=== PATIENT | male | born 1955 | race Caucasian/White ===

== ENCOUNTER 2017-04-13 06:41 | Inpatient (IN) | payer OTHER ==
[2017-03-17 11:10] VITALS: BMI 25.0
--- NOTE | 2017-03-17 11:44 | PAT Medication Instructions ---
Service Date Mar 17, 2017. Current Home Medication List Acetaminophen (Tylenol), 1,000 MG PO Q4H PRN for Pain or Fever Atorvastatin (Lipitor), 20 MG PO HS Celecoxib (CeleBREX), 200 MG PO QPM Clonazepam (Klonopin), 0.5 MG PO BID PRN for ANX/INSOM. Fish Oil (Parma-3), 1 CAP PO QAM Losartan Potassium (Cozaar), 50 MG PO QAM Trazodone Hcl (Trazodone), 25 MG PO HS Medication Instructions For Your Scheduled Surgery -Follow your surgeon's instructions for: Celecoxib (CeleBREX), 200 MG PO QPM - Hold the following medications 2 weeks prior to surgery: Fish Oil (Parma-3), 1 CAP PO QAM - Hold the following medications the morning of surgery: Losartan Potassium (Cozaar), 50 MG PO QAM - Take the following medications the morning of surgery with a sip of water: Clonazepam (Klonopin), 0.5 MG PO BID PRN for ANX/INSOM. (if needed) Acetaminophen (Tylenol), 1,000 MG PO Q4H PRN for Pain or Fever (if needed, up to four hours before surgery) - Take the following medications as scheduled the night before surgery: Trazodone Hcl (Trazodone), 25 MG PO HS Clonazepam (Klonopin), 0.5 MG PO BID PRN for ANX/INSOM. (if needed) Atorvastatin (Lipitor), 20 MG PO HS Acetaminophen (Tylenol), 1,000 MG PO Q4H PRN for Pain or Fever (if needed) If you have any questions please call us at [phone] or [phone] or [phone]
[2017-03-17 12:18] LABS: BASO % 0.5 %; BASO ABS # 0.03 K/uL (0-0.2); EOS % 2.8 %; EOS ABS # 0.18 K/uL (0-0.5); HEMATOCRIT 40.2 % (42-52); HEMOGLOBIN 14.3 g/dL (14.0-18.0); IG# 0.01 K/uL (0.00-0.02); LYMPH % 35.3 %; LYMPH ABS # 2.26 K/uL (1.2-3.4); MEAN CELL VOLUME 88.7 fL (80-100); MEAN CORPUSCULAR HEMOGLOBIN 31.6 pg (25-34); MEAN CORPUSCULAR HGB CONC 35.6 g/dl (32-36); MEAN PLATELET VOLUME 9.1 fL (7.4-10.4); MONO % 9.5 %; MONO ABS # 0.61 K/uL (0.11-0.59); NEUT % 51.7 %; NEUT ABS # 3.32 K/uL (1.4-6.5); PLATELET COUNT 198 K/uL (130-400); RED CELL DISTRIBUTION WIDTH CV 13.2 % (11.5-14.5); RED CELL DISTRIBUTION WIDTH SD 42.7 fL (36.4-46.3); WHITE BLOOD COUNT 6.41 K/uL (4.8-10.8)
[2017-03-17 12:29] LABS: HEMOGLOBIN A1C 5.3 % (4.5-5.6)
[2017-03-17 12:30] LABS: PTT PATIENT 28.8 SECONDS (21.0-31.0)
--- NOTE | 2017-03-17 12:55 | DIAGNOSTIC IMAGING REPORT ---
CHEST 2 VIEWS ROUTINE HISTORY: Preop. COMPARISON: None. FINDINGS: The lungs are clear. The heart is normal in size. No pleural effusions. No pneumothorax. Postoperative changes seen within the left shoulder. IMPRESSION: No acute process. Electronically signed by: Stefan Elkins M.D. 03/17/2017 12:53 PM Dictated Date/Time: 03/17/2017 12:50 PM
[2017-03-17 14:01] LABS: ALBUMIN 3.7 gm/dl (3.4-5.0); CREATININE 0.88 mg/dl (0.60-1.40)
--- NOTE | 2017-04-12 19:05 | HISTORY & PHYSICAL EXAMINATION ---
DATE OF ADMISSION: 04/13/2017 CHIEF COMPLAINT: Chronic right hip pain. HISTORY OF PRESENT ILLNESS: This is a 61-year-old male patient of Dr. Cid'yue complaining of chronic right hip pain, longstanding, now progressively getting worse. The patient has been diagnosed with end-stage osteoarthritis per clinical and radiographic exams. He has failed conservative treatment including intraarticular injections, the use of anti-inflammatories. The patient has increased pain with weightbearing activities and his pain does interfere with his activities of daily living. PAST MEDICAL HISTORY: Hypertension, anxiety, osteoarthritis. SOCIAL HISTORY: Nonsmoker, nondrinker. FAMILY HISTORY: Noncontributory. PAST SURGICAL HISTORY: ACL surgery and shoulder surgery in the past. REVIEW OF SYSTEMS: The patient complains of chronic right hip pain. Otherwise, denies any shortness of breath, chest pain, nausea, vomiting or any other joint complaints. PHYSICAL EXAMINATION: GENERAL: Well-developed, well-nourished 61-year-old male in no acute distress. He is alert and oriented x3 and pleasant. HEENT: Normocephalic, atraumatic. Extraocular motions are intact. Pupils are equal and reactive to light. HEART: Regular rate and rhythm, no murmurs are appreciated. LUNGS: Clear. ABDOMEN: Soft and nontender, bowel sounds are present. EXTREMITIES: Right hip reveals painful range of motion with internal and external rotation passively. He has 5/5 strength in his lower extremity with pain. NEUROLOGIC: Neurovascularly he is intact in his right lower extremity. DIAGNOSES: Right hip end-stage osteoarthritis, hypertension, anxiety, osteoarthritis. PLAN: The patient was advised of his diagnosis. Indications, risks, benefits, and postop course have all been reviewed. The patient wishes to proceed with a right total hip arthroplasty. Necessary consent form, preoperative testing and clearances will be obtained.
[2017-04-13] VITALS (8 sets, daily range): BP systolic 109–155; BP diastolic 67–99; PULSE 64–100; TEMP 36.4–36.5; O2SAT 94–100; Ht 167.6 cm; Wt 71.2 kg
[~2017-04-13] VITALS: Ht 167.6 cm; Wt 71.2 kg
[2017-04-13] MEDS: ROPIVACAINE 5MG/ML 30 ML 150 MG, BUPIVACAINE 0.5% MPF INJ 30 ML, EpINEphrine HCL INJ 0.... INFIL SCH ×7 (06:00)
[2017-04-13] MEDS: TRANEXAMIC ACID INJ 1,000 MG x 2 Bags IV SCH ×4 (06:00→06:30)
[~2017-04-13 06:41] MED LIST: ACET-1256 PO; ACETAMINOPHEN 500 MG TAB PO SCH; ATOR-22 PO; BUPIVACAINE 0.5 % 5 MG/1 ML PF 10ML VIAL ONE; CLB/200 PO; CLON0.5T3 PO; CeleBREX 200 MG CAP PO SCH; DEXAMETHASONE 4 MG TAB PO SCH; FAMOTIDINE 20 MG TAB PO SCH; GABAPENTIN 600 MG PO SCH; LACTATED RINGER'S 1000ML 1,000 ML IV SCH; LACTATED RINGER'S 1000ML 500 ML IV SCH; LOSA50TA6 PO; METOCLOPRAMIDE HCL 10 MG TAB PO SCH; OMEG10007 PO; TRAZ50TA35 PO; VANCOMYCIN 1GM/270ML NSS 270 ML IV SCH
--- NOTE | 2017-04-13 07:10 | History & Physical Bridge Note ---
H&P Re-Evaluation Bridge Note: I have examined the patient, reviewed the History & Physical and in the interval since the performance of the History & Physical I have noted the following changes of clinical significance: No changes noted
[2017-04-13] MEDS ORDERED: FENTANYL CITRATE INJ 50 MCG/1 ML 2 ML VIAL ONE ×3 (07:23→10:55)
[2017-04-13] MEDS ORDERED: MIDAZOLAM HCL 1 MG/ML 2ML VIAL ONE (07:24)
[2017-04-13] MEDS ORDERED: FENTANYL CITRATE INJ 50 MCG/1 ML 2 ML VIAL IV PRN (07:45)
[2017-04-13] MEDS ORDERED: ONDANSETRON INJ 2 MG/ML 2 ML VIAL IV PRN ×2 (07:45→12:15)
[2017-04-13] MEDS ORDERED: EpHEDrine SULFATE INJ 50 MG/ML AMP IV PRN (07:45)
[2017-04-13] MEDS ORDERED: ATROPINE SULFATE 0.1 MG/ML 5ML SYR IV PRN (07:45)
[2017-04-13] MEDS ORDERED: ORTHO JOINT ANESTHETIC ONE (07:48)
[2017-04-13] MEDS ORDERED: POVIDONE-IODINE OP SOLN 30 ML BTL ONE (07:48)
[2017-04-13] MEDS ORDERED: BACITRACIN 50000 UNIT VIAL ONE (07:48)
[2017-04-13] MEDS ORDERED: DEXAMETHASONE SOD INJ 4 MG/ML VIAL ONE (09:51)
[2017-04-13] MEDS ORDERED: ONDANSETRON INJ 2 MG/ML 2 ML VIAL ONE (10:52)
[2017-04-13] MEDS ORDERED: PROPOFOL IV EMULSION 10 MG/ML 20 ML VIAL IV ONE (10:52)
[2017-04-13] MEDS ORDERED: EpHEDrine SULFATE 50MG/5ML SYR ONE (11:15)
[2017-04-13] MEDS ORDERED: NEOSTIGMINE METHYLSULFATE 5 MG/5 ML SYR ONE (11:15)
[2017-04-13] MEDS ORDERED: PHENYLEPHRINE 100MCG/ML 5ML SYR ONE (11:26)
--- NOTE | 2017-04-13 11:38 | [facility] Post Operative Brief Note ---
Immediate Operative Summary Operative Date Apr 13, 2017. Pre-Operative Diagnosis Right Hip, End-Stage Osteoarthritis Post-Operative Diagnosis Same as preoperative Procedure(s) Performed Right Total Hip Arthroplasty, Uncemented Surgeon Dr. Jay Cid Machinery Dismantler Surgeon(s) Dre Nelson PA-C Estimated Blood Loss 75 cc Findings Consistent with Post-Op Diagnosis Specimens Right Femoral Head Drains 2 hemovadc Anesthesia Type General Regional Complication(s) none Disposition Disposition: Recovery Room / PACU
[2017-04-13] MEDS ORDERED: CLONAZEPAM 0.5 MG TAB PO PRN (12:15)
[2017-04-13] MEDS ORDERED: MoRPHine SULFATE 2 MG/ML CARP IV PRN (12:15)
[2017-04-13] MEDS ORDERED: TAMSULOSIN HCL 0.4 MG CAP PO PRN (12:15)
[2017-04-13] MEDS ORDERED: OXYCODONE HCL IR 5 MG TAB (IMMEDIATE RELEASE) PO PRN (12:15)
[2017-04-13] MEDS ORDERED: ALUMINUM/MAGNESIUM/SIMETH (MAALOX MAX) 30 ML UDC PO PRN (12:15)
[2017-04-13] MEDS ORDERED: VANCOMYCIN CONSULT ACTIVE PRN (12:15)
[2017-04-13] MEDS ORDERED: MAGNESIUM HYDROXIDE SUSP 30 ML UDC PO PRN (12:15)
[2017-04-13] MEDS ORDERED: MoRPHine SULFATE 10 MG/ML CARP/VIAL IV PRN (12:45)
[2017-04-13] MEDS ORDERED: MoRPHine SULFATE 4 MG/ML 1 ML CARP\\VIAL IV PRN (12:45)
--- NOTE | 2017-04-13 13:19 | Anesthesiology Progress Note ---
Anesthesia Post Op Note Date & Time Apr 13, 2017 at 13:19 Vital Signs Pain Intensity: 0 Vital Signs Past 12 Hours Date Time Temp Pulse Resp B/P (MAP) Pulse Ox O2 Delivery O2 Flow Rate FiO2 04/13/17 13:13 100 13 18 13:13 102 13 98 18 13:11 140/97 18 13:08 90 12 99 18 13:08 90 12 04/13/17 13:06 139/92 04/13/17 13:03 93 12 98 18 13:03 93 12 04/13/17 13:01 146/93 18 12:58 97 18 98 04/13/17 12:58 99 18 04/13/17 12:56 149/94 04/13/17 12:53 96 19 98 18 12:53 96 19 04/13/17 12:51 147/88 04/13/17 12:48 92 13 99 04/13/17 12:48 92 13 04/13/17 12:46 152/94 18 12:43 96 14 18 12:43 96 14 98 18 12:42 96 16 99 18 12:42 95 16 18 12:41 156/98 18 12:37 90 15 145/93 97 18 12:37 90 15 18 12:36 149/93 18 12:32 95 13 18 12:32 95 13 99 18 12:32 36.6 92 16 145/93 (108) 98 Nasal Cannula 2 04/13/17 12:31 147/89 18 12:27 88 12 100 18 12:27 88 12 18 12:26 131/82 18 12:22 87 14 100 18 12:22 87 14 18 12:21 84 11 18 12:21 83 11 99 18 12:20 120/70 04/13/18 12:10 79 15 108/71 (82) 99 Oxymask 10 04/13/17 12:01 36.5 79 16 106/63 (76) 99 Oxymask 10 04/13/17 06:54 36.5 76 16 155/99 Room Air Notes Mental Status: alert / awake / arousable, participated in evaluation Pt Amnestic to Procedure: Yes Nausea / Vomiting: adequately controlled Pain: adequately controlled Airway Patency, RR, SpO2: stable & adequate BP & HR: stable & adequate Hydration State: stable & adequate Neuraxial Anesthesia: was administered, sensory block is resolving Anesthetic Complications: no major complications apparent
--- NOTE | 2017-04-13 13:27 | DIAGNOSTIC IMAGING REPORT ---
AP PELVIS, CROSSTABLE LATERAL RIGHT HIP History: Right total hip arthroplasty. Degenerative arthritis. Postop. FINDINGS: The patient is status post a right total hip arthroplasty. The hardware is intact. No fracture or dislocation. Skin jimmy and surgical drains are in place. IMPRESSION: Right total hip arthroplasty. No evidence for hardware complication Electronically signed by: Stefan Elkins M.D. 04/13/2017 1:26 PM Dictated Date/Time: 04/13/2017 1:25 PM
[2017-04-13] MEDS: D5W AND 1/2NSS + 20MEQ KCL 1,000 ML IV SCH (14:23)
[2017-04-13] MEDS: ACETAMINOPHEN 500 MG TAB PO SCH ×2 (14:23→21:22)
[2017-04-13] MEDS: FERROUS GLUCONATE 324 MG TAB PO SCH (17:48)
--- NOTE | 2017-04-13 19:06 | CONSULTATION REPORT ---
DATE OF CONSULTATION: 04/13/2017 CHIEF COMPLAINT: Status post right hip surgery. HISTORY OF PRESENT ILLNESS: This 61-year-old male with past medical history significant for hypertension, anxiety, insomnia, hyperlipidemia, BPH and diastolic CHF, is status post left hip surgery, tolerated the procedure okay. Pain is under control. Denies any chest pain, no shortness of breath, no headaches, no blurred vision, no nausea, no vomiting, no abdominal pain, resting comfortably and hemodynamically stable. ALLERGIES: BEE STINGS. PAST MEDICAL HISTORY: As mentioned above. PAST SURGICAL HISTORY: knee repair, shoulder surgery, vasectomy. MEDICATIONS: The patient is on Tylenol 650 mg p.o. q. 8 hours p.r.n., amoxicillin 2000 mg once as needed, Klonopin 0.5 mg p.o. b.i.d. p.r.n., glucosamine chondroitin 1 capsule p.o. daily, losartan 500 mg p.o. daily, multivitamins with minerals 1 tablet p.o. daily, trazodone 50 mg p.o. at bedtime p.r.n., atorvastatin 20 mg p.o. daily and vitamin C 500 mg p.o. daily. FAMILY HISTORY: Father has hypertension. Mother has emphysema and CVA. Daughter has asthma. Brother has diabetes. SOCIAL HISTORY: . No tobacco use. Alcohol occasional. No drug use. REVIEW OF SYMPTOMS: As per HPI. Rest of review of systems negative. PHYSICAL EXAMINATION: GENERAL: The patient is of moderate build, not in distress. VITAL SIGNS: Temperature 36.5, pulse 94, respiratory rate 18, blood pressure 124/76, oxygen 98% on room air. HEENT: No pallor, no icterus. NECK: No JVD, no neck masses. CARDIOVASCULAR: S1, S2 heard, regular rate and rhythm, no murmur, no gallop. RESPIRATORY SYSTEM: Clear to auscultation bilaterally. No wheezing, no crackles. ABDOMEN: Soft, bowel sounds present. Nontender. No distention. CENTRAL NERVOUS SYSTEM: Nonfocal. EXTREMITIES: Status post right hip surgery. Dressing and drain intact. Moves extremities, no edema. LABORATORY DATA: Unavailable. ASSESSMENT AND PLAN: This is a 61-year-old male status post right hip arthroplasty. 1. Right hip arthroplasty, management as per Orthopedics. 2. Hypertension. Continue his home medications of losartan. Monitor his blood pressure. 3. History of hyperlipidemia. Continue statin. 4. History of anxiety and insomnia . On Klonopin prn and trazodone. 5. Deep venous thrombosis prophylaxis and disposition as per Orthopedics. MTDD
[2017-04-13] MEDS ORDERED: VANCOMYCIN INJ 1,000 MG in SODIUM CHLORIDE 0.9% 250ML 250 ML IV SCH (19:30)
[2017-04-13] MEDS: SENNA 8.6 MG TAB PO SCH (19:44)
[2017-04-13] MEDS: DOCUSATE SODIUM 100 MG CAP PO SCH (19:44)
[2017-04-13] MEDS: ASPIRIN 81 MG ECTAB PO SCH (21:20)
[2017-04-13] MEDS: TRAZODONE HCL 50 MG TAB PO SCH (21:20)
[2017-04-13] MEDS: CeleBREX 200 MG CAP PO SCH (21:21)
[2017-04-13] MEDS: ATORVASTATIN 20 MG TAB PO SCH (21:22)
--- NOTE | 2017-04-13 21:45 | OPERATIVE REPORT ---
DATE OF OPERATION: 04/13/2017 INDICATION FOR PROCEDURE: The patient is a 61-year-old male with bilateral hip osteoarthritis, right greater than left. He has [id number] end-stage osteoarthritis, right hip. He has failed all conservative management. Now presents for right hip replacement. PREOPERATIVE DIAGNOSIS: End-stage osteoarthritis, right hip. POSTOPERATIVE DIAGNOSIS: Same. PROCEDURE: Right total hip arthroplasty. SURGEON: Jay Cid MD. SENIOR SYSTEMS ADMINISTRATOR: DIEGO Burks. ANESTHESIA: Spinal, sedation and Orthomix. OPERATIVE PROCEDURE: The patient was placed under sedation, had spinal anesthetic, transferred to the operating room and placed in the supine position on a sacral pad with a foot roll under his foot to flex his knee 90 degrees and hip 60 degrees during the procedure as needed. The bed was placed in some Trendelenburg to drain the pelvic veins, tilted to the left to help expose right hip. Right hip exam demonstrated 90 degrees of flexion, limited internal rotation. His leg length was just a few millimeters short compared to his opposite hip. His right lower extremity hip area was prepped and draped with ChloraPrep in usual sterile fashion. A lateral incision was made across the right hip. A Hardinge approach was performed to the right hip. Skin was incised sharply. Subcutaneous flaps were elevated. The fascia alley was divided longitudinally and the gluteus quan fascia was split proximally. The patient had fairly thickened trochanteric bursa, which was resected. The gluteus medius was intact. Gluteus medius was split between its anterior 40% and posterior 60%. This was reflected off the minimus, was divided and reflected off the capsule and the capsule was divided down to the hip joint which demonstrated a joint effusion and synovitis. He had a large superior posterior labral tear. A curvilinear incision was made through the gluteus medius tendon leaving a cuff of tissue for repair on the trochanter. The vastus lateralis was split 3.5 cm and a muscular capsular flap was elevated off the anterior hip joint. Hip joint was dislocated with flexion and external rotation. Femoral head was noted to be completely eburnated bone with some moderate rimming osteophytes. The femoral neck cut was then made 15 mm proximal to the lesser trochanter in neutral anteversion. Femoral head was removed, measured about 49 mm in diameter. The acetabulum was then exposed. We used a self-retaining superior acetabular retractor impacted into the ileum. A blunt Hohmann retractor anteriorly and double angled inferior ischial retractor. Acetabulum was down to bone so had some articular cartilage in certain areas and had a labral tear that was identified. There was also synovitis in the joint. The acetabular labrum was excised and soft tissue in the acetabular fossa was excised. The transverse acetabular ligament was resected with an anterior capsular release and a partial capsulectomy. The first reamer used was the [employer] Trident acetabular shell, was a 44 mm reamer which we reamed to the inner table and then sequential reamers up to a size 52, which had appropriate fit and fill. The trial reduction was performed which had a stable fit and then we went ahead after irrigation with antibiotic solution with bacitracin, implanting the52 mm E Trident PSL hydroxyapatite coated shell. This was placed in 45 degrees of abduction and about 15 degrees of anteversion. We had good fixation with tight pressfit. Two additional screws, both 20 mm x 6.5 mm diameter screws in the posterior superior quadrant were placed. Then after irrigation, the 36 mm E 10 degree polyethylene X3 poly inserted into place with the high wall posterior. Then attention was taken to the femoral preparation. The femur was exposed by flexing and externally rotating the hip. We used a box osteotome followed by a starter awl followed by sequential broaches up to a size 5 stem. We used a 127 degree neck angle based on preoperative templating. A trial reduction with a +0 neck length gave stability through full range of motion and satisfactory soft tissue tension. The trial was removed. After irrigation with antibiotic solution and bacitracin, the final implant which was the Accolade II tapered stem size 5 with a 127 degree neck angle was impacted into position. Then we went ahead with the Biolox delta 36 mm +0 neck length femoral head, impacted onto the Albarran taper of the stem and this was reduced to the acetabulum. We checked the leg lengths, which this leg was about 3-4 mm longer than the opposite leg but length was required for stability. The wound was copiously irrigated with antibiotic solution and bacitracin. Then, we used a Betadine soak while we prepared the greater trochanter for repair with transosseous sutures placed and the #5 FiberWire sutures passed. After further irrigation, 2 drains were brought out laterally and placed into the hip joint. Then the gluteus minimus was repaired and the capsule repaired with [id number] #1 Vicryl sutures. The medius was repaired with the #5 FiberWire sutures using Aston-Valeriy suture technique and lateral row soft tissue fixation was performed with [id number] #2 Fiberwire sutures and the split in the vastus lateralis was closed with yrgzil-[id number] #1 Vicryl sutures. Split in the gluteus medius was repaired with [id number]-lg-dixhe #1 Vicryl sutures. Hip was taken through full range of motion and repair was secure. The fascia alley and the gluteus quan fascia were repaired with annuvn-[id number] #1 Vicryl sutures. Subcutaneous tissue was closed with interrupted 2-0 Vicryl sutures, skin closed with jimmy and sterile dressings were applied and the patient tolerated the procedure well. DIEGO Burks was my first sampler, he functioned as first sampler throughout the entire procedure. He assisted in prepping, draping, leg positioning, soft tissue retraction, instrument management during the procedure and performed the outer fascial, subcutaneous and skin closure and will participate in postoperative care of the patient. I attest to the content of the Intraoperative Record and any orders documented therein. Any exception s are noted below.
[2017-04-14] MEDS: D5W AND 1/2NSS + 20MEQ KCL 1,000 ML IV SCH ×2 (00:10→09:51)
[2017-04-14 03:00] VITALS: BP 132/71; PULSE 83; TEMP 36.6; O2SAT 98
[2017-04-14] MEDS: ACETAMINOPHEN 500 MG TAB PO SCH ×3 (05:40→22:00)
[2017-04-14 07:10] VITALS: BP 133/76; PULSE 56; TEMP 36.8; O2SAT 100
--- NOTE | 2017-04-14 07:39 | Orthopedic Progress Note ---
Orthopedic Progress Note Date of Service Apr 14, 2017. Subjective Post OP Day: 1 Reports: feeling well, pain controlled w PO medications, Denies: complaints, chest pain, SOB, nausea / vomiting, light headedness, calf pain Objective calves soft nontender, N/V intact, hip located, capillary refill less than 2 sec., dressing C/D/I, A&O x3, toes mobile Date Time Temp Pulse Resp B/P (MAP) Pulse Ox O2 Delivery O2 Flow Rate FiO2 04/14/17 03:00 36.6 83 16 132/71 (91) 98 Room Air 04/13/17 23:30 Room Air 04/13/17 22:53 36.5 64 16 109/67 (81) 96 Room Air 04/13/17 19:49 36.5 73 18 125/76 (92) 99 Room Air 04/13/17 17:00 36.4 90 18 130/78 (95) 94 Room Air 04/13/17 16:25 Room Air 04/13/17 15:57 36.5 94 18 124/76 (92) 98 Room Air 04/13/17 14:56 95 16 138/86 (103) 98 Room Air 04/13/17 14:02 36.4 100 19 135/87 (103) 100 Nasal Cannula 2.0 04/13/17 13:30 36.4 99 16 146/88 (107) 100 Nasal Cannula 2.0 04/13/17 13:30 Room Air 04/13/17 13:30 100 Nasal Cannula 2.0 04/13/17 13:13 100 13 04/13/17 13:13 102 13 98 04/13/17 13:11 140/97 04/13/17 13:08 90 12 99 04/13/17 13:08 90 12 04/13/17 13:06 139/92 04/13/17 13:03 93 12 98 04/13/17 13:03 93 12 04/13/17 13:01 146/93 04/13/17 12:58 97 18 98 04/13/17 12:58 99 18 04/13/17 12:56 149/94 04/13/17 12:53 96 19 98 04/13/17 12:53 96 19 04/13/17 12:51 147/88 04/13/17 12:48 92 13 99 04/13/17 12:48 92 13 04/13/17 12:46 152/94 04/13/17 12:43 96 14 04/13/17 12:43 96 14 98 04/13/17 12:42 96 16 99 04/13/17 12:42 95 16 04/13/17 12:41 156/98 04/13/17 12:37 90 15 145/93 97 04/13/17 12:37 90 15 04/13/17 12:36 149/93 04/13/17 12:32 95 13 04/13/17 12:32 95 13 99 04/13/17 12:32 36.6 92 16 145/93 (108) 98 Nasal Cannula 2 04/13/17 12:31 147/89 04/13/17 12:27 88 12 100 04/13/17 12:27 88 12 04/13/17 12:26 131/82 04/13/17 12:22 87 14 100 04/13/17 12:22 87 14 04/13/17 12:21 84 11 04/13/17 12:21 83 11 99 04/13/17 12:20 120/70 04/13/17 12:10 79 15 108/71 (82) 99 Oxymask 10 04/13/17 12:01 36.5 79 16 106/63 (76) 99 Oxymask 10 Laboratory Results 24 Hours: Test 04/14/17 07:33 Assessment & Plan Assessment: POD #1, Right ANDIE Plan: PT/ OT DVT proph- ASA D/C planning- Home As per medicine Inhouse Planning Pain Management: Celebrex, Ultram, Morphine, PO Tylenol, Oxy IR DVT Prophylaxis: TEDs, SCDs, ASA Discharge Planning Discharge Planning: home Pain Management: Celebrex, PO Tylenol, Oxy IR DVT Prophylaxis: TEDs, ASA Therapy: Physical Therapy, Occupational Therapy
[2017-04-14 07:57] LABS: BASO % 0.1 %; BASO ABS # 0.01 K/uL (0-0.2); EOS % 0.1 %; EOS ABS # 0.02 K/uL (0-0.5); HEMATOCRIT 35.2 % (42-52); HEMOGLOBIN 12.3 g/dL (14.0-18.0); IG# 0.07 K/uL (0.00-0.02); LYMPH % 14.7 %; LYMPH ABS # 2.28 K/uL (1.2-3.4); MEAN CELL VOLUME 88.4 fL (80-100); MEAN CORPUSCULAR HEMOGLOBIN 30.9 pg (25-34); MEAN CORPUSCULAR HGB CONC 34.9 g/dl (32-36); MONO % 9.9 %; MONO ABS # 1.53 K/uL (0.11-0.59); NEUT % 74.7 %; NEUT ABS # 11.57 K/uL (1.4-6.5); PLATELET COUNT 174 K/uL (130-400); RED CELL DISTRIBUTION WIDTH SD 42.2 fL (36.4-46.3); WHITE BLOOD COUNT 15.48 K/uL (4.8-10.8)
[2017-04-14 08:22] LABS: CALCIUM 8.5 mg/dl (8.5-10.1); CREATININE 0.87 mg/dl (0.60-1.40); POTASSIUM 3.8 mmol/L (3.5-5.1)
[2017-04-14] MEDS: FERROUS GLUCONATE 324 MG TAB PO SCH ×3 (08:45→17:30)
[2017-04-14] MEDS: CeleBREX 200 MG CAP PO SCH ×2 (08:46→20:35)
[2017-04-14] MEDS: DOCUSATE SODIUM 100 MG CAP PO SCH ×2 (08:46→20:34)
[2017-04-14] MEDS: LOSARTAN POTASSIUM 50 MG TAB PO SCH (08:46)
[2017-04-14] MEDS: MULTIVITAMIN TAB PO SCH (08:47)
[2017-04-14] MEDS: ASPIRIN 81 MG ECTAB PO SCH ×2 (08:47→20:35)
[2017-04-14] MEDS: TRAMADOL HCL 50 MG TAB PO PRN ×4 (10:29→22:00)
[2017-04-14 11:40] VITALS: BP 138/81; PULSE 65; TEMP 36.7; O2SAT 98
[2017-04-14 15:25] VITALS: BP 131/77; PULSE 55; TEMP 36.6; O2SAT 98
--- NOTE | 2017-04-14 18:57 | Progress Note ---
Internal Med Progress Note Date of Service: Apr 14, 2017. Provider Documentation: SUBJECTIVE: sitting on the chair comfortably ambulated ok no chest pain or sob afebrile plan for home in am OBJECTIVE: Vital Signs-as noted below Exam: General-alert and oriented. Not in distress ENT-normal hearing Neck-no neck masses Lungs-cta b/l no wheezing or crackles Heart-s1 and s2 heard regular rate and rhythm no murmurs Abdomen-soft bowel sounds present non tender no distension Extremities-no edema no erythema s/p right hip surgery. dressing and drain intact Neuro-alert and awake moves extremities Lab data as noted below. ASSESSMENT & PLAN: : This is a 61-year-old male status post right hip arthroplasty. 1. Right hip arthroplasty, management as per Orthopedics. 2. Hypertension. Continue his home medications of losartan. Monitor his blood pressure.stable 3. History of hyperlipidemia. Continue statin. 4. History of anxiety and insomnia . On Klonopin prn and trazodone. 5. Deep venous thrombosis prophylaxis and disposition as per Orthopedics. Vital Signs: Date Time Temp Pulse Resp B/P (MAP) Pulse Ox O2 Delivery O2 Flow Rate FiO2 04/14/17 15:25 36.6 55 18 131/77 (95) 98 Room Air 04/14/17 15:15 Room Air 04/14/17 11:40 36.7 65 16 138/81 (100) 98 Room Air 04/14/17 07:20 Room Air 04/14/17 07:10 36.8 56 16 133/76 (95) 100 Room Air 04/14/17 03:00 36.6 83 16 132/71 (91) 98 Room Air 04/13/17 23:30 Room Air 04/13/17 22:53 36.5 64 16 109/67 (81) 96 Room Air 04/13/17 19:49 36.5 73 18 125/76 (92) 99 Room Air Lab Results: Results Past 24 Hours Test 04/14/17 07:33 Range/Units White Blood Count 15.48 4.8-10.8 K/uL Red Blood Count 3.98 4.7-6.1 M/uL Hemoglobin 12.3 14.0-18.0 g/dL Hematocrit 35.2 42-52 % Mean Corpuscular Volume 88.4 80-100 fL Mean Corpuscular Hemoglobin 30.9 25-34 pg Mean Corpuscular Hemoglobin Concent 34.9 32-36 g/dl Platelet Count 174 130-400 K/uL Mean Platelet Volume 9.0 7.4-10.4 fL Neutrophils (%) (Auto) 74.7 % Lymphocytes (%) (Auto) 14.7 % Monocytes (%) (Auto) 9.9 % Eosinophils (%) (Auto) 0.1 % Basophils (%) (Auto) 0.1 % Neutrophils # (Auto) 11.57 1.4-6.5 K/uL Lymphocytes # (Auto) 2.28 1.2-3.4 K/uL Monocytes # (Auto) 1.53 0.11-0.59 K/uL Eosinophils # (Auto) 0.02 0-0.5 K/uL Basophils # (Auto) 0.01 0-0.2 K/uL RDW Standard Deviation 42.2 36.4-46.3 fL RDW Coefficient of Variation 13.0 11.5-14.5 % Immature Granulocyte % (Auto) 0.5 % Immature Granulocyte # (Auto) 0.07 0.00-0.02 K/uL Sodium Level 140 136-145 mmol/L Potassium Level 3.8 3.5-5.1 mmol/L Chloride Level 106 98-107 mmol/L Carbon Dioxide Level 28 21-32 mmol/L Anion Gap 6.0 3-11 mmol/L Blood Urea Nitrogen 16 7-18 mg/dl Creatinine 0.87 0.60-1.40 mg/dl Est Creatinine Clear Calc Drug Dose 79.4 ml/min Estimated GFR () 107.2 Estimated GFR (Non- 92.5 BUN/Creatinine Ratio 18.4 10-20 Random Glucose 87 70-99 mg/dl Calcium Level 8.5 8.5-10.1 mg/dl
[2017-04-14] MEDS: SENNA 8.6 MG TAB PO SCH (20:34)
[2017-04-14] MEDS: TRAZODONE HCL 50 MG TAB PO SCH (20:35)
[2017-04-14] MEDS: ATORVASTATIN 20 MG TAB PO SCH (20:35)
[2017-04-15] VITALS: BP 132/75; PULSE 58; TEMP 36.4; O2SAT 98
[2017-04-15] MEDS: ACETAMINOPHEN 500 MG TAB PO SCH ×2 (05:47→12:54)
[2017-04-15 06:44] VITALS: BP 131/78; PULSE 68; TEMP 36.6; O2SAT 98
--- NOTE | 2017-04-15 07:17 | Orthopedic Progress Note ---
Orthopedic Progress Note Date of Service Apr 15, 2017. Subjective Post OP Day: 2 Reports: feeling well, pain controlled w PO medications, Denies: complaints, chest pain, SOB, nausea / vomiting, light headedness, calf pain Objective calves soft nontender, N/V intact, hip located, capillary refill less than 2 sec., dressing C/D/I, A&O x3, toes mobile silverlon in tact Date Time Temp Pulse Resp B/P (MAP) Pulse Ox O2 Delivery O2 Flow Rate FiO2 04/15/17 06:44 36.6 68 18 131/78 (95) 98 Room Air 04/15/17 00:00 36.4 58 18 132/75 (94) 98 Room Air 04/14/17 23:51 Room Air 04/14/17 15:25 36.6 55 18 131/77 (95) 98 Room Air 04/14/17 15:15 Room Air 04/14/17 11:40 36.7 65 16 138/81 (100) 98 Room Air 04/14/17 07:20 Room Air Laboratory Results 24 Hours: Test 04/14/17 07:33 White Blood Count 15.48 K/uL Red Blood Count 3.98 M/uL Hemoglobin 12.3 g/dL Hematocrit 35.2 % Mean Corpuscular Volume 88.4 fL Mean Corpuscular Hemoglobin 30.9 pg Mean Corpuscular Hemoglobin Concent 34.9 g/dl Platelet Count 174 K/uL Mean Platelet Volume 9.0 fL Neutrophils (%) (Auto) 74.7 % Lymphocytes (%) (Auto) 14.7 % Monocytes (%) (Auto) 9.9 % Eosinophils (%) (Auto) 0.1 % Basophils (%) (Auto) 0.1 % Neutrophils # (Auto) 11.57 K/uL Lymphocytes # (Auto) 2.28 K/uL Monocytes # (Auto) 1.53 K/uL Eosinophils # (Auto) 0.02 K/uL Basophils # (Auto) 0.01 K/uL Assessment & Plan Assessment: POD #2, Right ANDIE Plan: PT/ OT DVT proph- ASA D/C planning- Home today As per medicine Inhouse Planning Pain Management: Celebrex, Ultram, Morphine, PO Tylenol, Oxy IR DVT Prophylaxis: TEDs, SCDs, ASA Discharge Planning Discharge Planning: home Pain Management: Celebrex, PO Tylenol, Oxy IR DVT Prophylaxis: TEDs, ASA Therapy: Physical Therapy, Occupational Therapy
[2017-04-15] MEDS ORDERED: ULT50X PO (07:20)
[2017-04-15] MEDS ORDERED: ACET-24 PO (07:20)
[2017-04-15] MEDS ORDERED: ASPEC81 PO (07:20)
[2017-04-15] MEDS ORDERED: CLB200 PO (07:20)
--- NOTE | 2017-04-15 07:21 | Discharge Instructions ---
Discharge Instructions Date of Service Apr 15, 2017. Admission Reason for Admission: Right Hip Degenerative Joint Disease Discharge Discharge Diagnosis / Problem: Right ANDIE Discharge Goals Goal(s): Improve function Activity Recommendations Activity Limitations: as noted below . Instructions / Follow-Up Instructions / Follow-Up ACTIVITY RECOMMENDATIONS: SELF CARE INSTRUCTIONS AFTER TOTAL HIP REPLACEMENT Until the incision and soft tissues around your hip have healed, there is a possibility that the hip prosthesis could dislocate. A. Observe the following precautions to prevent dislocation: 1. Don't bend your hip greater than 90 degrees. 2. Avoid crossing your legs or ankles while standing or lying. 3. Sit with your feet placed 6 inches apart. 4. When sitting, keep your knees below your hips. Sit on a firm surface, avoid deep, soft chairs and couches. Use an elevated toilet seat in the bathroom. 5. Don't bend over at the waist. Use a long handled shoehorn and a sock aid to help you put on your shoes and socks. A printing technician can help you milk pickup driver objects that are too high or too low to reach. 6. Keep car riding to a minimum for at least one month after surgery. B. Your balance may be shaky for a while. Use crutches or a walker until directed by your doctor. C. Use hand rails when walking on stairs. D. Wear low heeled shoes with non-slip soles. E. Be sure that your floors are free of things that could trip you - throw rugs , electrical cords, small objects. Avoid wet and waxed floors, especially with crutches and canes. F. Try to walk several times a day with rest periods between. G. Continue with all the exercises taught to you in the hospital. Again, make walking a part of your daily routine. SPECIAL CARE INSTRUCTIONS: VERY IMPORTANT TO READ AND REVIEW A. You may still be at risk for phlebitis and blood clots. 1. Wear surgical stockings (JAYSON hose) for 2 weeks after surgery to improve circulation and reduce swelling. 2. Take Aspirin 81mg twice daily for 4 weeks or as directed by your doctor. This is your blood thinner. 3. High risk patients may be prescribed a stronger blood thinner if necessary. 4. If you are on Coumadin normally, your family doctor/social sciences chair should monitor your blood work. Expect a phone call the day of or the day after bloodwork is drawn to adjust your dosage. B. You must take antibiotics before having dental work, bladder, bowel and other surgery. Your doctor will provide you with a permanent card to carry describing precautions. C. Call [facility] if you have a fever, redness or swelling around the incision, cloudy drainage from incision, or sudden increase in pain in your hip, not relieved by your regular pain medication. D. Please call the office at if you have any concerns or questions about your operation or recovery. * YOU MAY SHOWER, NO TUB BATHS UNTIL CLEARED BY YOUR DOCTOR. * WEAR JAYSON HOSE 20 HOURS PER DAY FOR 2 WEEKS. * YOU SHOULD USE A WALKER OR CRUTCHES FOR 2-4 WEEKS. THIS WILL HELP PREVENT STRAIN ON YOUR HIP MUSCLE AND ALLOW IT TO HEAL PROPERLY. YOU MAY WEAN TO A CANE TOLERATED. * MOST PATIENTS WILL HAVE HOME NURSING FOR THERAPY. IF YOU DECIDE TO DO OUTPATIENT PHYSICAL THERAPY, PLEASE SCHEDULE THIS 3 TIMES PER WEEK. * YOU MAY HAVE A LARGE, BAND-PAWAN LIKE DRESSING (SILVERON). THIS WILL REMAIN ON YOUR INCISION FOR 7 DAYS, THEN CAN BE REMOVED. IF INCISION IS LEAKING THROUGH DRESSING, PLEASE CALL THE OFFICE . FOLLOW UP VISIT: If appointment is not already scheduled: Please call [facility] to make a follow-up appointment for 2 weeks after your surgery at . Current Hospital Diet Patient's current hospital diet: Regular Diet Discharge Diet Recommended Diet: Regular Diet Procedures Procedures Performed: Right Total Hip Arthroplasty, Uncemented Pending Studies Studies pending at discharge: no Laboratory Results Hemoglobin A1c Test 03/17/17 11:55 Range/Units Estimated Average Glucose 105 mg/dl Hemoglobin A1c 5.3 4.5-5.6 % Medical Emergencies . Who to Call and When: Medical Emergencies: If at any time you feel your situation is an emergency, please call 911 immediately. . Non-Emergent Contact Non-Emergency issues call your: Primary Care Provider . "Provider Documentation" section prepared by Matt Angulo. . VTE Core Measure Inpt VTE Proph given/why not?: Other Anticoagulation (asa), T.E.Shravan Servin, SCD's [place] Drug Monitoring Program Search Results: patient reviewed within database, no issues identified
[2017-04-15] MEDS: ASPIRIN 81 MG ECTAB PO SCH (07:44)
[2017-04-15] MEDS: FERROUS GLUCONATE 324 MG TAB PO SCH ×2 (07:45→12:53)
[2017-04-15] MEDS: CeleBREX 200 MG CAP PO SCH (07:45)
[2017-04-15] MEDS: LOSARTAN POTASSIUM 50 MG TAB PO SCH (07:46)
[2017-04-15] MEDS: DOCUSATE SODIUM 100 MG CAP PO SCH (07:46)
[2017-04-15] MEDS: MULTIVITAMIN TAB PO SCH (07:46)
[2017-04-15 07:59] VITALS: BP 122/84; PULSE 64; TEMP 36.6; O2SAT 95
[2017-04-15 08:42] VITALS: O2SAT 95
[2017-04-15 10:49] VITALS: BP 122/84; PULSE 64; TEMP 36.6; O2SAT 95
[2017-04-15 12:00] VITALS: BP 122/80; PULSE 62; TEMP 36.9; O2SAT 99
== END 2017-04-15 13:45 | disposition home health service (06) | DRG 470 ==
LOC: C.ACU 06:41 → C.3E 07:00 → ENRESERV 12:34
PROVIDERS: ADMIT Orthopaedic Surgery Sports Medicine; ATTEND Orthopaedic Surgery Sports Medicine
PROC: 0SRR0JA Replacement of Right Hip Joint, Femoral Surface with Synthetic Substitute, Uncemented, Open Approach (ICD-10-PCS; principal; 2017-04-13 09:00)
DX: M16.11 Unilateral primary osteoarthritis, right hip (principal); I50.30 Unspecified diastolic (congestive) heart failure; I11.0 Hypertensive heart disease with heart failure; F41.9 Anxiety disorder, unspecified; G47.00 Insomnia, unspecified; E78.5 Hyperlipidemia, unspecified; N40.0 Benign prostatic hyperplasia without lower urinary tract symptoms; Z96.642 Presence of left artificial hip joint; Z98.52 Vasectomy status; Z82.49 Family history of ischemic heart disease and other diseases of the circulatory system; Z83.3 Family history of diabetes mellitus; Z82.5 Family history of asthma and other chronic lower respiratory diseases

== ENCOUNTER 2017-09-23 05:28 | Inpatient (IN) | payer OTHER ==
[2017-08-03 13:34] VITALS: BMI 25.0
--- NOTE | 2017-09-22 19:20 | HISTORY & PHYSICAL EXAMINATION ---
DATE OF ADMISSION: 09/23/2017 CHIEF COMPLAINT: Left hip pain. HISTORY OF PRESENT ILLNESS: This is a 61-year-old male patient of Dr. Cid'yue complaining of chronic left hip pain, longstanding, now progressively getting worse. The patient has failed conservative treatment including anti-inflammatories, glucosamine, fish oil. The patient has increased pain with weightbearing activities and his pain does interfere with his activities of daily living. He has been diagnosed with end-stage hip arthritis per clinical and radiographic exams. PAST MEDICAL HISTORY: Hypertension, hypercholesterolemia, osteoarthritis. SOCIAL HISTORY: Nonsmoker, nondrinker. PAST SURGICAL HISTORY: Right total hip, right knee surgery, right shoulder surgery, tonsil surgery, and right ACL surgery. FAMILY HISTORY: Noncontributory. REVIEW OF SYSTEMS: Chronic left hip pain. Otherwise, denies any shortness of breath, chest pain, nausea, vomiting, or other joint complaint. MEDICATIONS: Losartan 50 mg daily, fish oil daily, glucosamine chondroitin daily, Celebrex 200 mg daily, Lipitor 20 mg daily, trazodone 50 mg as needed, Klonopin 0.5 mg 1 tablet b.i.d. as needed. ALLERGIES: INCLUDE PENICILLIN AND BEE STINGS. PHYSICAL EXAMINATION: GENERAL: Well-developed, well-nourished 61-year-old male in no acute distress. He is alert and oriented x3 and pleasant. HEENT: Normocephalic, atraumatic. Extraocular motions are intact. Pupils are equal, reactive to light. HEART: Regular rate and rhythm. No murmurs are appreciated. LUNGS: Clear. ABDOMEN: Soft and nontender. Bowel sounds are present. EXTREMITIES: Left hip reveals passive range of motion that is painful radiating to the lateral thigh, the hip, and the groin. He has no flexion contracture. He has 4/5 strength. Neurologically and neurovascularly he is intact in his left lower extremity. His leg lengths are clinically equal. DIAGNOSES: Left hip end-stage osteoarthritis, hypertension, hypercholesterolemia, osteoarthritis. PLAN: The patient was advised of his diagnosis. Indications, risks, benefits, postop course have all been reviewed. The patient wishes to proceed with a left total hip arthroplasty. Necessary consent forms, preoperative testing, and clearances will be obtained.
[~2017-09-23] VITALS: Ht 167.6 cm; Wt 71.4 kg
[2017-09-23] VITALS (10 sets, daily range): BP systolic 104–152; BP diastolic 63–88; PULSE 62–101; TEMP 36.5–37.1; O2SAT 94–99; Ht 167.6 cm; Wt 71.4 kg
[~2017-09-23 05:28] MED LIST changes: -ACET-1256 PO; -BUPIVACAINE 0.5 % 5 MG/1 ML PF 10ML VIAL ONE; -CLON0.5T3 PO; +GLUC1CAP35 PO; +KLN/5 PO; -LACTATED RINGER'S 1000ML 1,000 ML IV SCH; -LACTATED RINGER'S 1000ML 500 ML IV SCH; +MULT-506 PO; +TRANEXAMIC ACID INJ 1,000 MG x 2 Bags IV SCH; -TRAZ50TA35 PO; -VANCOMYCIN 1GM/270ML NSS 270 ML IV SCH
[2017-09-23] MEDS ORDERED: FAMOTIDINE 20 MG TAB PO SCH (06:00)
[2017-09-23] MEDS ORDERED: ROPIVACAINE 5MG/ML 30 ML 150 MG, BUPIVACAINE 0.5% MPF INJ 30 ML, EpINEphrine HCL INJ 0.... INFIL SCH ×7 (06:00)
[2017-09-23] MEDS ORDERED: LACTATED RINGER'S 1000ML 500 ML IV SCH (06:00)
[2017-09-23] MEDS ORDERED: CeleBREX 200 MG CAP PO SCH (06:00)
[2017-09-23] MEDS ORDERED: METOCLOPRAMIDE HCL 10 MG TAB PO SCH (06:00)
[2017-09-23] MEDS ORDERED: ACETAMINOPHEN 500 MG TAB PO SCH (06:00)
[2017-09-23] MEDS ORDERED: GABAPENTIN 600 MG PO SCH (06:00)
[2017-09-23] MEDS ORDERED: LACTATED RINGER'S 1000ML 1,000 ML IV SCH (06:00)
[2017-09-23] MEDS ORDERED: DEXAMETHASONE 4 MG TAB PO SCH (06:00)
[2017-09-23] MEDS: TRANEXAMIC ACID INJ 1,000 MG x 2 Bags IV SCH ×4 (06:58→11:37)
[2017-09-23] MEDS ORDERED: PHENYLEPHRINE 100MCG/ML 5ML SYR IV PRN (07:45)
[2017-09-23] MEDS ORDERED: FENTANYL CITRATE INJ 50 MCG/1 ML 2 ML VIAL IV PRN (07:45)
[2017-09-23] MEDS ORDERED: EpHEDrine SULFATE INJ 50 MG/ML AMP IV PRN (07:45)
[2017-09-23] MEDS ORDERED: ONDANSETRON INJ 2 MG/ML 2 ML VIAL IV PRN ×2 (07:45→10:00)
[2017-09-23] MEDS ORDERED: ATROPINE SULFATE 0.1 MG/ML 5ML SYR IV PRN (07:45)
[2017-09-23] MEDS ORDERED: PROMETHAZINE HCL INJ 12.5 MG in SODIUM CHLORIDE 0.9% 50ML 50 ML IV PRN (07:45)
[2017-09-23] MEDS ORDERED: HYDROmorphone INJ 1 MG/ML SYR IV PRN (07:45)
--- NOTE | 2017-09-23 09:45 | [facility] Post Operative Brief Note ---
Immediate Operative Summary Operative Date Sep 23, 2017. Pre-Operative Diagnosis End-Stage Osteoarthritis of Left Hip Post-Operative Diagnosis End-Stage Osteoarthritis of Left Hip Procedure(s) Performed Left Total Hip Arthroplasty Surgeon Dr Cid Store Director Surgeon(s) Matt Angulo PA-C Estimated Blood Loss 175ML Findings Consistent with Post-Op Diagnosis Specimens A: Left Femoral Head Drains 2 hemovac Anesthesia Type Spinal MAC Complication(s) none Disposition Disposition: Recovery Room / PACU Overlapping Procedure I was present for: the critical portions of procedure.
[2017-09-23] MEDS ORDERED: METOCLOPRAMIDE HCL INJ 5 MG/ML 2 ML VIAL IV PRN (10:00)
[2017-09-23] MEDS ORDERED: CLONAZEPAM 0.5 MG TAB PO PRN (10:00)
[2017-09-23] MEDS ORDERED: SOD PHOSPHATE/SOD BIPHOSPHATE ENEMA 132 ML BTL PR PRN (10:00)
[2017-09-23] MEDS ORDERED: VANCOMYCIN CONSULT ACTIVE PRN (10:00)
[2017-09-23] MEDS ORDERED: ZOLPIDEM TARTRATE 5 MG TAB PO PRN (10:00)
[2017-09-23] MEDS ORDERED: MoRPHine SULFATE 2 MG/ML CARP IV PRN (10:00)
[2017-09-23] MEDS ORDERED: BISACODYL 10 MG SUPP PR PRN (10:00)
[2017-09-23] MEDS ORDERED: TRAMADOL HCL 50 MG TAB PO PRN (10:00)
[2017-09-23] MEDS ORDERED: MAGNESIUM HYDROXIDE SUSP 30 ML UDC PO PRN (10:00)
--- NOTE | 2017-09-23 10:08 | [facility] Operative Report ---
Operative Report Operative Date Sep 23, 2017. Pre-Operative Diagnosis End-Stage Osteoarthritis of Left Hip Post-Operative Diagnosis Same Procedure(s) Performed Left total hip arthroplasty Surgeon Dr Cid Paving Crew Foreman Surgeon(s) Matt Angulo PA-C Estimated Blood Loss 175ML Findings [id number] left hip joint eburnated bone chronic thickened joint capsule Specimens A: Left Femoral Head Drains 2 hemovac Anesthesia Spinal sedation orthomix Complication(s) None Disposition Recovery Room / PACU Indications 61-year-old male with chronic progressive osteoarthritis left hip failed conservative management. Patient's [id number]. Patient has successful right hip replacement. Description of Procedure Patient taken to the operating room and anesthetized under spinal anesthesia and sedation. Patient was placed supine on the operating table. Exam of the involved extremity demonstrated he had limited internal rotation in flexion to about 5 with flexion to 110 and abduction to 40. He was a thin individual with well-developed musculature.The patient was placed on a sacral pad and the involved leg was placed on a foot bump to flex knee 90 and hip 60. A Tello -type approach was performed to the hip. A longitudinal lateral incision was made over the hip. The skin was incised sharply. The fat was divided down to the fascia. Subcutaneous bleeders are cauterized. Trochanteric bursa was resected. A split was made in the gluteus medius muscle between the anterior 40 % and posterior 60%. The minimus was divided longitudinally reflected off the underlying capsule. The capsule was incised down to the hip joint. An incision was made through the gluteus medius leaving a cuff of tendon for repair on the greater trochanter. The vastus lateralis was split longitudinally for about 3 cm. A muscular capsular flap was elevated off the hip. The hip was dislocated with use of bone hook and with flexion and external rotation of the hip. The femoral neck cut was made approximately 15 mm proximal to the lesser trochanter in neutral anteversion. Head and neck fragment were removed. The femoral head demonstrated eburnated bone femoral neck osteophytes. A self-retaining superior tractor was impacted into the ilium , a blunt Oswaldo retractor was placed anteriorly a double angled inferior retractor was placed on the ischium. The acetabulum demonstrated thickened acetabular labrum osteophytes and grade 4 superior wear. The acetabular labrum was resected all osteophytes were resected.The soft tissue in the acetabular fossa was resected. An anterior capsular release was performed. Some the capsule was resected for exposure. The first reamer was used to medialize reaming to the inner table and then sequential reamers for the acetabulum were used in 2 mm increments up to a size 52 mm. I used the [employer] total hip arthroplasty system using a PSL type cup. Trial reduction demonstrated a 52 millimeter cup was the appropriate size and fit. The placement of the final implant was performed after irrigating the acetabulum with antibiotic solution with pulsatile lavage. The position of the cup was approximately 15 anteversion 45 abduction. Good fixation was performed. Two 6.5 mm cancellus screws were placed in the posterior superior quadrant for further fixation through the cup. The acetabular liner was impacted into position. The Trident X3 10 36 mm E acetabular liner was used.The Orthomix coctail injected into the capsule around the acetabular component and deeper muscles. The retractors removed and attention was taken to the femur. The femur was exposed with flexion external rotation. A Canal reamer was used followed by sequential tapered Accolade 2 broaches up to a size 5. This had a good fit and fill. Trial reduction was performed with a 127 neck angle based on preoperative templating. A + 0 neck length gave equal leg lengths and stable range of motion through full flexion flexion adduction and internal rotation and extension and external rotation. The trials removed and after irrigation again and the final implant was impacted which was the Accolade 2 size 5. The Biolox ceramic head size 36 was used. After final implants replaced the reduction was noted to be stable. Betadine soak was used per protocol. 2 drains were placed deep. These were brought out laterally and connected to Hemovac. The minimus was closed with interrupted [id number]-rimzq #1 Vicryl sutures and one transosseous suture through the greater trochanter. The medius was closed with transosseous #5 FiberWire sutures using Aston Valeriy suture technique. Lateral row soft tissue repair was performed with figure of 8 #2 FiberWire sutures. The medius split was closed with interrupted klilvk-ab-aoljg #1 Vicryl sutures. The vastus lateralis was closed with interrupted figure of eight #1Vicryl sutures. The fascia alley was closed with interrupted figure of eight #1 Vicryl sutures. The fat was closed with tqegax-jz-chgxl #2 Vicryl sutures. Skin was closed with jimmy and sterile dressings were applied. The patient tolerated procedure well. Matt CORTEZ my physician lpn medical assistant assisted me in the procedure with patient positioning And draping soft tissue retraction instrument management suture management and assisted in the outer layer closure and will participate in the postoperative care the patient. I attest to the content of the Intraoperative Record and any orders documented therein. Any exceptions are noted below.
--- NOTE | 2017-09-23 10:21 | DIAGNOSTIC IMAGING REPORT ---
SINGLE VIEW PELVIS; SINGLE VIEW left HIP CLINICAL HISTORY: Postoperative examination. FINDINGS: An AP portable view of the hips and pelvis with a crosstable lateral portable view of the left hip are obtained. A bipolar left hip arthroplasty is in near-anatomic alignment. At least 2 cortical lag screws transfix the acetabular cup. No acute fracture is identified. There are expected postoperative changes overlying the left hip including skin clips, subcutaneous gas, a surgical drain, and soft tissue swelling. A right hip arthroplasty is in place. Surgical clips are noted on the traumatic cord bilaterally. IMPRESSION: Expected postoperative findings status post left hip arthroplasty. No acute fracture is seen. Electronically signed by: Durga Moncada M.D. 09/23/2017 10:19 AM Dictated Date/Time: 09/23/2017 10:18 AM
--- NOTE | 2017-09-23 10:40 | Anesthesiology Progress Note ---
Anesthesia Post Op Note Date & Time Sep 23, 2017 at 10:40 Vital Signs Pain Intensity: 0 Vital Signs Past 12 Hours Date Time Temp Pulse Resp B/P (MAP) Pulse Ox O2 Delivery O2 Flow Rate FiO2 09/23/17 10:25 83 12 120/80 100 Nasal Cannula 2 09/23/17 10:15 84 19 111/71 100 Nasal Cannula 2 09/23/17 10:05 84 12 116/72 100 Nasal Cannula 2 09/23/17 09:55 36.6 86 14 121/75 100 Nasal Cannula 2 09/23/17 06:13 37 75 20 152/88 99 Room Air Notes Mental Status: alert / awake / arousable, participated in evaluation Pt Amnestic to Procedure: Yes Nausea / Vomiting: adequately controlled Pain: adequately controlled Airway Patency, RR, SpO2: stable & adequate BP & HR: stable & adequate Hydration State: stable & adequate Neuraxial Anesthesia: was administered, sensory block is resolving Anesthetic Complications: no major complications apparent
[2017-09-23] MEDS: D5W AND 1/2NSS + 20MEQ KCL 1,000 ML IV SCH ×2 (12:33→22:20)
[2017-09-23] MEDS: ACETAMINOPHEN 500 MG TAB PO SCH ×2 (13:44→22:13)
[2017-09-23] MEDS: DOCUSATE SODIUM 100 MG CAP PO SCH (21:00)
[2017-09-23] MEDS ORDERED: VANCOMYCIN IV 1,000 MG in SODIUM CHLORIDE 0.9% 250ML 250 ML IV ONE (21:00)
[2017-09-23] MEDS: OXYCODONE HCL IR 5 MG TAB (IMMEDIATE RELEASE) PO PRN (22:11)
[2017-09-23] MEDS: ASPIRIN 81 MG ECTAB PO SCH (22:12)
[2017-09-23] MEDS: ATORVASTATIN 20 MG TAB PO SCH (22:13)
[2017-09-23] MEDS: CeleBREX 200 MG CAP PO SCH (22:13)
[2017-09-24 03:46] VITALS: BP 114/70; PULSE 66; TEMP 36.8; O2SAT 98
[2017-09-24] MEDS: ACETAMINOPHEN 500 MG TAB PO SCH ×3 (05:43→21:31)
[2017-09-24 06:06] LABS: BASO % 0.1 %; BASO ABS # 0.01 K/uL (0-0.2); EOS % 0.3 %; EOS ABS # 0.04 K/uL (0-0.5); HEMATOCRIT 30.1 % (42-52); HEMOGLOBIN 10.5 g/dL (14.0-18.0); IG# 0.02 K/uL (0.00-0.02); LYMPH % 18.9 %; MEAN CELL VOLUME 87.2 fL (80-100); MEAN CORPUSCULAR HEMOGLOBIN 30.4 pg (25-34); MEAN CORPUSCULAR HGB CONC 34.9 g/dl (32-36); MEAN PLATELET VOLUME 8.9 fL (7.4-10.4); MONO % 9.7 %; MONO ABS # 1.34 K/uL (0.11-0.59); NEUT % 70.9 %; NEUT ABS # 9.77 K/uL (1.4-6.5); PLATELET COUNT 136 K/uL (130-400); RED CELL DISTRIBUTION WIDTH CV 13.5 % (11.5-14.5); RED CELL DISTRIBUTION WIDTH SD 43.1 fL (36.4-46.3); WHITE BLOOD COUNT 13.78 K/uL (4.8-10.8)
[2017-09-24 06:45] LABS: CALCIUM 7.8 mg/dl (8.5-10.1); CREATININE 0.9 mg/dl (0.60-1.40)
[2017-09-24 07:35] VITALS: BP 123/76; PULSE 63; TEMP 36.5; O2SAT 98
[2017-09-24] MEDS: D5W AND 1/2NSS + 20MEQ KCL 1,000 ML IV SCH (08:00)
--- NOTE | 2017-09-24 08:30 | Orthopedic Progress Note ---
Orthopedic Progress Note Date of Service Sep 24, 2017. Subjective Post OP Day: 1 Reports: feeling well, pain controlled w PO medications, Denies: complaints, chest pain, SOB, nausea / vomiting, light headedness, calf pain Objective calves soft nontender, N/V intact, hip located, capillary refill less than 2 sec., dressing C/D/I, A&O x3, toes mobile Date Time Temp Pulse Resp B/P (MAP) Pulse Ox O2 Delivery O2 Flow Rate FiO2 09/24/17 07:35 36.5 63 16 123/76 (92) 98 Room Air 09/24/17 03:50 Room Air 09/24/17 03:46 36.8 66 14 114/70 (85) 98 Room Air 09/23/17 23:44 36.5 62 16 115/68 (84) 99 Room Air 09/23/17 20:10 Room Air 09/23/17 19:23 36.9 72 18 115/76 (89) 98 Room Air 09/23/17 15:45 96 Room Air 09/23/17 15:22 37.1 75 18 104/63 (77) 96 Room Air 09/23/17 14:19 37.0 86 17 119/74 (89) 94 Room Air 09/23/17 13:14 37.1 101 20 120/79 (93) 96 Room Air 09/23/17 12:06 36.6 90 19 106/74 (85) 99 Nasal Cannula 2.0 09/23/17 11:32 36.6 84 18 113/76 (88) 99 Nasal Cannula 2.0 09/23/17 11:05 99 Nasal Cannula 2.0 09/23/17 11:05 99 Nasal Cannula 2.0 09/23/17 10:45 89 18 124/77 100 Nasal Cannula 2 09/23/17 10:35 37.0 90 17 103/79 100 Nasal Cannula 2 09/23/17 10:25 83 12 120/80 100 Nasal Cannula 2 09/23/17 10:15 84 19 111/71 100 Nasal Cannula 2 09/23/17 10:05 84 12 116/72 100 Nasal Cannula 2 09/23/17 09:55 36.6 86 14 121/75 100 Nasal Cannula 2 Laboratory Results 24 Hours: Test 09/24/17 05:54 White Blood Count 13.78 K/uL Red Blood Count 3.45 M/uL Hemoglobin 10.5 g/dL Hematocrit 30.1 % Mean Corpuscular Volume 87.2 fL Mean Corpuscular Hemoglobin 30.4 pg Mean Corpuscular Hemoglobin Concent 34.9 g/dl Platelet Count 136 K/uL Mean Platelet Volume 8.9 fL Neutrophils (%) (Auto) 70.9 % Lymphocytes (%) (Auto) 18.9 % Monocytes (%) (Auto) 9.7 % Eosinophils (%) (Auto) 0.3 % Basophils (%) (Auto) 0.1 % Neutrophils # (Auto) 9.77 K/uL Lymphocytes # (Auto) 2.60 K/uL Monocytes # (Auto) 1.34 K/uL Eosinophils # (Auto) 0.04 K/uL Basophils # (Auto) 0.01 K/uL Assessment & Plan Assessment: POD #1, Left ANDIE Plan: PT/ OT DVT proph- ASA D/C planning- Home w Inhouse Planning Pain Management: Celebrex, Ultram, Morphine, PO Tylenol, Oxy IR DVT Prophylaxis: TEDs, SCDs, ASA Discharge Planning Discharge Planning: home with home health Pain Management: Celebrex, PO Tylenol, Oxy IR DVT Prophylaxis: TEDs, ASA Therapy: Physical Therapy, Occupational Therapy
[2017-09-24] MEDS: ASPIRIN 81 MG ECTAB PO SCH ×2 (08:44→20:49)
[2017-09-24] MEDS: PANTOprazole SOD 40 MG TAB PO SCH (08:44)
[2017-09-24] MEDS: MULTIVITAMIN TAB PO SCH (08:45)
[2017-09-24] MEDS: CeleBREX 200 MG CAP PO SCH ×2 (08:45→20:49)
[2017-09-24] MEDS: DOCUSATE SODIUM 100 MG CAP PO SCH ×2 (08:45→20:49)
[2017-09-24] MEDS: LOSARTAN POTASSIUM 50 MG TAB PO SCH (08:46)
[2017-09-24] MEDS: OXYCODONE HCL IR 5 MG TAB (IMMEDIATE RELEASE) PO PRN ×2 (08:49→21:32)
--- NOTE | 2017-09-24 08:59 | Anesthesiology Progress Note ---
Anesthesia Post Op Note Date & Time Sep 24, 2017 at 08:58 Vital Signs Pain Intensity: 2.0 Vital Signs Past 12 Hours Date Time Temp Pulse Resp B/P (MAP) Pulse Ox O2 Delivery O2 Flow Rate FiO2 09/24/17 07:35 36.5 63 16 123/76 (92) 98 Room Air 09/24/17 03:50 Room Air 09/24/17 03:46 36.8 66 14 114/70 (85) 98 Room Air 09/23/17 23:44 36.5 62 16 115/68 (84) 99 Room Air Notes Mental Status: alert / awake / arousable, participated in evaluation Pt Amnestic to Procedure: Yes Nausea / Vomiting: adequately controlled Pain: adequately controlled Airway Patency, RR, SpO2: stable & adequate BP & HR: stable & adequate Hydration State: stable & adequate Neuraxial Anesthesia: sensory block resolved Anesthetic Complications: no major complications apparent
[2017-09-24 11:58] VITALS: BP 101/62; PULSE 65; TEMP 36.9; O2SAT 98
[2017-09-24 16:12] VITALS: BP 112/64; PULSE 61; TEMP 36.9; O2SAT 100
[2017-09-24 16:15] VITALS: O2SAT 100
[2017-09-24] MEDS: ATORVASTATIN 20 MG TAB PO SCH (20:49)
[2017-09-24 23:04] VITALS: BP 116/69; PULSE 70; TEMP 37.2; O2SAT 97
[2017-09-25] MEDS: ACETAMINOPHEN 500 MG TAB PO SCH (05:27)
[2017-09-25 07:20] VITALS: BP 115/74; PULSE 63; TEMP 36.9; O2SAT 94
[2017-09-25] MEDS: CeleBREX 200 MG CAP PO SCH (08:25)
[2017-09-25] MEDS: DOCUSATE SODIUM 100 MG CAP PO SCH (08:25)
[2017-09-25] MEDS: OXYCODONE HCL IR 5 MG TAB (IMMEDIATE RELEASE) PO PRN (08:26)
[2017-09-25] MEDS: ASPIRIN 81 MG ECTAB PO SCH (08:26)
--- NOTE | 2017-09-25 08:49 | Orthopedic Progress Note ---
Orthopedic Progress Note Date of Service Sep 25, 2017. Subjective Post OP Day: 2 Reports: feeling well, Denies: complaints Objective calves soft nontender, N/V intact, hip located, dressing C/D/I, A&O x3, toes mobile Date Time Temp Pulse Resp B/P (MAP) Pulse Ox O2 Delivery O2 Flow Rate FiO2 09/25/17 07:20 36.9 63 16 115/74 (88) 94 Room Air 09/24/17 23:30 Room Air 09/24/17 23:04 37.2 70 16 116/69 (85) 97 Room Air 09/24/17 16:15 100 Room Air 09/24/17 16:12 36.9 61 18 112/64 (80) 100 Room Air 09/24/17 11:58 36.9 65 16 101/62 (75) 98 Room Air Assessment & Plan Assessment: POD #2, Left ANDIE Plan: PT/ OT DVT proph- ASA D/C planning- Home w HH Inhouse Planning Pain Management: Celebrex, Ultram, Morphine, PO Tylenol, Oxy IR DVT Prophylaxis: TEDs, SCDs, ASA Discharge Planning Discharge Planning: home with home health Pain Management: Celebrex, PO Tylenol, Oxy IR DVT Prophylaxis: TEDs, ASA Therapy: Physical Therapy
[2017-09-25] MEDS ORDERED: CLB/200 PO (08:51)
[2017-09-25] MEDS ORDERED: ASPI-461 PO (08:51)
[2017-09-25] MEDS ORDERED: ACET-24 PO (08:51)
[2017-09-25] MEDS ORDERED: RXC5 PO (08:51)
--- NOTE | 2017-09-25 08:54 | Discharge Instructions ---
Discharge Instructions Date of Service Sep 25, 2017. Admission Reason for Admission: Left Hip Degenerative Joint Disease Discharge Discharge Diagnosis / Problem: Djd Left Hip Discharge Goals Goal(s): Decrease discomfort, Improve function, Increase independence Activity Recommendations Activity Limitations: per Instructions/Follow-up section Weightbearing Status: Left weightbearing (as tolerated) . Instructions / Follow-Up Instructions / Follow-Up ACTIVITY RECOMMENDATIONS: SELF CARE INSTRUCTIONS AFTER TOTAL HIP REPLACEMENT Until the incision and soft tissues around your hip have healed, there is a possibility that the hip prosthesis could dislocate. A. Observe the following precautions to prevent dislocation: 1. Don't bend your hip greater than 90 degrees. 2. Avoid crossing your legs or ankles while standing or lying. 3. Sit with your feet placed 6 inches apart. 4. When sitting, keep your knees below your hips. Sit on a firm surface, avoid deep, soft chairs and couches. Use an elevated toilet seat in the bathroom. 5. Don't bend over at the waist. Use a long handled shoehorn and a sock aid to help you put on your shoes and socks. A tours hostess can help you picking table worker objects that are too high or too low to reach. 6. Keep car riding to a minimum for at least one month after surgery. B. Your balance may be shaky for a while. Use crutches or a walker until directed by your doctor. C. Use hand rails when walking on stairs. D. Wear low heeled shoes with non-slip soles. E. Be sure that your floors are free of things that could trip you - throw rugs , electrical cords, small objects. Avoid wet and waxed floors, especially with crutches and canes. F. Try to walk several times a day with rest periods between. G. Continue with all the exercises taught to you in the hospital. Again, make walking a part of your daily routine. SPECIAL CARE INSTRUCTIONS: VERY IMPORTANT TO READ AND REVIEW A. You may still be at risk for phlebitis and blood clots. 1. Wear surgical stockings (JAYSON hose) for 2 weeks after surgery to improve circulation and reduce swelling. 2. Take Aspirin 81mg twice daily for 4 weeks or as directed by your doctor. This is your blood thinner. 3. High risk patients may be prescribed a stronger blood thinner if necessary. 4. If you are on Coumadin normally, your family doctor/waiter/waitress cabin class should monitor your blood work. Expect a phone call the day of or the day after bloodwork is drawn to adjust your dosage. B. You must take antibiotics before having dental work, bladder, bowel and other surgery. Your doctor will provide you with a permanent card to carry describing precautions. C. Call [facility] if you have a fever, redness or swelling around the incision, cloudy drainage from incision, or sudden increase in pain in your hip, not relieved by your regular pain medication. D. Please call the office at if you have any concerns or questions about your operation or recovery. * YOU MAY SHOWER, NO TUB BATHS UNTIL CLEARED BY YOUR DOCTOR. * WEAR JAYSON HOSE 20 HOURS PER DAY FOR 2 WEEKS. * YOU SHOULD USE A WALKER OR CRUTCHES FOR 2-4 WEEKS. THIS WILL HELP PREVENT STRAIN ON YOUR HIP MUSCLE AND ALLOW IT TO HEAL PROPERLY. YOU MAY WEAN TO A CANE TOLERATED. * MOST PATIENTS WILL HAVE HOME NURSING FOR THERAPY. IF YOU DECIDE TO DO OUTPATIENT PHYSICAL THERAPY, PLEASE SCHEDULE THIS 3 TIMES PER WEEK. * Silverlon- This is a large adhesive bandage that contains silver ions. This helps your incision heal by fighting off bacteria and protecting it from the outside environment. You are permitted to shower with this dressing. This will remain on your incision for 7 days and then should be removed. Some visible blood or drainage through the dressing window is normal. If there is significant drainage or leaking noted before the 7 days notify your doctor's office immediately. Once removed, keep incision clean and dry. If there is any drainage or redness noted, please call your surgeon. . FOLLOW UP VISIT: If appointment is not already scheduled: Please call [facility] to make a follow-up appointment for 2 weeks after your surgery at . Current Hospital Diet Patient's current hospital diet: Regular Diet Discharge Diet Recommended Diet: Regular Diet Procedures Procedures Performed: Left Total Hip Arthroplasty Pending Studies Studies pending at discharge: no Laboratory Results Hemoglobin A1c Test 09/01/17 14:03 Range/Units Estimated Average Glucose 114 mg/dl Hemoglobin A1c 5.6 4.5-5.6 % Medical Emergencies . Who to Call and When: Medical Emergencies: If at any time you feel your situation is an emergency, please call 911 immediately. . Non-Emergent Contact Non-Emergency issues call your: Surgeon Call Non-Emergent contact if: temperature is above 101.5, your pain is not controlled, your pain is worsening, wound has increased drainage, wound has increased redness . "Provider Documentation" section prepared by Dre Nelson. . [place] Drug Monitoring Program Search Results: patient reviewed within database, no issues identified
[2017-09-25 09:46] VITALS: BP 139/77; PULSE 73
[2017-09-25] MEDS: MULTIVITAMIN TAB PO SCH (09:48)
[2017-09-25] MEDS: LOSARTAN POTASSIUM 50 MG TAB PO SCH (09:48)
[2017-09-25] MEDS: PANTOprazole SOD 40 MG TAB PO SCH (09:48)
[2017-09-25 11:13] VITALS: BP 139/77; PULSE 73; TEMP 36.9; O2SAT 94
== END 2017-09-25 12:34 | disposition home health service (06) | DRG 470 ==
LOC: C.ACU 05:28 → C.3E 06:52 → ENRESERV 10:38
PROVIDERS: ADMIT Orthopaedic Surgery Sports Medicine; ATTEND Orthopaedic Surgery Sports Medicine
PROC: 0SRB03Z Replacement of Left Hip Joint with Ceramic Synthetic Substitute, Open Approach (ICD-10-PCS; principal; 2017-09-23 07:15)
DX: M16.12 Unilateral primary osteoarthritis, left hip (principal); I10 Essential (primary) hypertension; E78.00 Pure hypercholesterolemia, unspecified; Z79.899 Other long term (current) drug therapy; Z96.641 Presence of right artificial hip joint; Z88.0 Allergy status to penicillin; Z91.030 Bee allergy status